=== PATIENT | male | born 1935 | race Caucasian/White ===

== ENCOUNTER 2016-12-12 15:17 | Emergency (ER) | payer OTHER ==
[2016-12-12 15:44] LABS: BASOPHILS 0.1 % (0-2); EOSINOPHILS 0.1 % (0-7); HEMATOCRIT 51.6 % (42.0-54.0); HEMOGLOBIN 17.9 g/dL (13.5-17.5); IMMATURE GRANULOCYTES 0.5 % (0-5); LYMPHOCYTES 17.9 % (15-50); MCH 30.7 pg (26.0-34.0); MCHC 34.7 g/dL (31.0-37.0); MCV 88.5 fL (80.0-100.0); MEAN PLATELET VOLUME 10.9 fL (7.4-10.4); MONOCYTES 5.9 % (2-11); NEUTROPHILS 75.5 % (40-80); PLATELET COUNT 169 10x3/uL (130-400); RBC 5.83 10x6/uL (4.20-6.10); RDW 13.4 % (11.5-14.5)
[2016-12-12 15:57] LABS: ALBUMIN 3.4 g/dL (3.4-5.0); ANION GAP 15.6 mmol/L (8-16); BILIRUBIN - TOTAL 0.44 mg/dL (0.2-1.3); CALCIUM 9.2 mg/dL (8.5-10.1); CARBON DIOXIDE 27.4 mmol/L (21.0-32.0); CREATININE - SERUM 2.2 mg/dL (0.6-1.3); PROTEIN - SERUM 7.2 g/dL (6.4-8.2)
[2016-12-12 17:22] LABS: TROPONIN-I 0.149 ng/mL (0.000-0.060)
== END 2016-12-12 23:14 | disposition short-term general hospital (02) ==
LOC: D.ER 15:17
PROVIDERS: Emergency Medicine; Physician Assistant
DX: R06.02 Shortness of breath (principal); R09.02 Hypoxemia; R53.1 Weakness; E11.9 Type 2 diabetes mellitus without complications; N28.9 Disorder of kidney and ureter, unspecified; J90 Pleural effusion, not elsewhere classified; I44.0 Atrioventricular block, first degree